=== PATIENT | female | born 1995 | race Caucasian/White ===

== ENCOUNTER 2018-05-08 13:36 | Emergency (ER) | payer OTHER ==
[2018-05-08 13:46] VITALS: BP 124/87
--- NOTE | 2018-05-08 13:48 | UC ---
UC General HPI - HPI Summary HPI Summary: Is almost out of sertraline prescription, has seen [facility], but it takes a while to get in. Has an intake appointment in 8 days, will probably take 3 more weeks to see psychiatrist. Just graduated from , looking for a job. - History of Current Complaint Stated Complaint: REFILL RX Time Seen by Provider: 05/08/18 13:37 Hx Obtained From: Patient Onset/Duration: Other Timing: Constant Current Severity: None Associated Signs & Symptoms: Positive: Other - Symptom-free currently - Allergy/Home Medications Allergies/Adverse Reactions: Allergies Allergy/AdvReac Type Severity Reaction Status Date / Time mmr vaccine Allergy Unknown Uncoded 05/08/18 13:46 Reaction Details Home Medications: Home Medications cloNIDine TAB* [Catapres 0.1 MG TAB*] 1 tab PO BID PRN 05/08/18 [History Confirmed 05/08/18] PMH/Surg Hx/FS Hx/Imm Hx Previously Healthy: Yes Psychological History: Anxiety, Depression - Family History Known Family History: Positive: Diabetes - grandmother - Social History Occupation: Unemployed Lives: Alone Alcohol Use: None Substance Use Type: None Smoking Status (MU): Never Smoked Tobacco Review of Systems Constitutional: Negative Skin: Negative Eyes: Negative ENT: Negative Respiratory: Negative Cardiovascular: Negative Gastrointestinal: Negative Genitourinary: Negative Motor: Negative Neurovascular: Negative Musculoskeletal: Negative Neurological: Negative Psychological: Negative Is Patient Immunocompromised?: No All Other Systems Reviewed And Are Negative: Yes Physical Exam Triage Information Reviewed: Yes Appearance: Well-Appearing, No Pain Distress, Obese Vital Signs Reviewed: Yes Eye Exam: Normal Eyes: Positive: Conjunctiva Clear ENT Exam: Normal ENT: Positive: Normal ENT inspection, Hearing grossly normal, Pharynx normal, TMs normal Dental Exam: Normal Neck exam: Normal Neck: Positive: Supple, Nontender, No Lymphadenopathy Respiratory Exam: Normal Respiratory: Positive: Chest non-tender, Lungs clear, Normal breath sounds, No respiratory distress, No accessory muscle use Cardiovascular Exam: Normal Cardiovascular: Positive: RRR, No Murmur Musculoskeletal: Positive: Strength Intact, ROM Intact Neurological Exam: Normal Neurological: Positive: Alert Psychological Exam: Normal Skin Exam: Normal Course/Dx - Differential Dx - Multi-Symptom Provider Diagnoses: Medication refill. mild depression. elevated blood pressure due to discomfort Discharge - Sign-Out/Discharge Documenting (check all that apply): Discharge/Admit/Transfer - Discharge Plan Condition: Stable Disposition: HOME Prescriptions: Sertraline* [Zoloft*] 1 tab PO DAILY #30 tab Patient Education Materials: Medicine Refill (ED) Referrals: [facility] [Outside] Additional Instructions: Please follow up with [facility] as well as a primary care provider. Call or come back at any time if need be. - Billing Disposition and Condition Condition: STABLE Disposition: Home
== END 2018-05-08 13:53 | disposition home or self-care (01) ==
LOC: UCEAST 13:36
DX: F41.8 Other specified anxiety disorders (principal)
CPT/HCPCS: 99212; G0463

== ENCOUNTER 2018-05-14 13:23 | Emergency (ER) | payer OTHER ==
--- NOTE | 2018-05-14 13:33 | UC ---
Lower Extremity/Ankle HPI - HPI Summary HPI Summary: 23 yo female presents with left ankle pain since 05/11. She tells me that on that date she tried to jump onto a boat - inverted her left ankle and landed on it. Had immediate pain, but was still able to ambulate. Since that time has had swelling and pain with weight bearing. Has been CEDRIC wrapped and using crutches. Denies numbness or tingling. - History of Current Complaint Stated Complaint: ANKLE INJURY Time Seen by Provider: 05/14/18 13:32 Hx Obtained From: Patient, Family/Vice [employer] Hx Last Menstrual Period: 3 wks ago Onset/Duration: Sudden Onset Severity Initially: Moderate Severity Currently: Moderate Pain Intensity: 6 Pain Scale Used: 0-10 Numeric Aggravating Factor(s): Standing, Ambulation Able to Bear Weight: Yes - Allergies/Home Medications Allergies/Adverse Reactions: Allergies Allergy/AdvReac Type Severity Reaction Status Date / Time mmr vaccine Allergy Unknown Uncoded 05/14/18 13:37 Reaction Details Home Medications: Home Medications Cetirizine* [ZyrTEC 10 MG TAB*] 10 mg PO DAILY PRN 05/14/18 [History Confirmed 05/14/18] Ibuprofen TAB* [Advil TAB*] 400 mg PO Q6H PRN 05/14/18 [History Confirmed ] PMH/Surg Hx/FS Hx/Imm Hx Previously Healthy: Yes Psychological History: Anxiety, Depression - Surgical History Surgical History: Yes Surgery Procedure, Year, and Place: Hernia - Family History Known Family History: Positive: Diabetes - grandmother - Social History Occupation: Student Lives: With Family Alcohol Use: None Substance Use Type: None Smoking Status (MU): Never Smoked Tobacco Review of Systems Constitutional: Negative Skin: Negative Respiratory: Negative Cardiovascular: Negative Musculoskeletal: Other: - Left ankle pain Neurological: Negative Psychological: Negative All Other Systems Reviewed And Are Negative: Yes Physical Exam - Summary Physical Exam Summary: GENERAL: NAD. WDWN. No pain distress. SKIN: No rashes, sores, lesions, or open wounds. NECK: Supple. Nontender. No lymphadenopathy. CHEST: No accessory muscle use. Breathing comfortably and in no distress. CV: Pulses intact PT and DP. Brisk cap refill. MSK: LEFT ANKLE: Moderate edema about left ankle lateral>medial. TTP about left ankle. FROM, but pain during inversion. Strength 5/5. No increased laxity. NEURO: Alert. Sensations intact and symmetric B/L LEs PSYCH: Age appropriate behavior. Triage Information Reviewed: Yes Vital Signs: Vital Signs: Temp Pulse Resp BP Pulse Ox 97.5 F 74 16 142/100 97 05/14/18 13:32 05/14/18 13:32 05/14/18 13:32 05/14/18 13:32 05/14/18 13:32 Lower Extremity Course/Dx - Course Course Of Treatment: XR: IMPRESSION: SOFT TISSUE INJURY, NO FRACTURE IS SEEN. Suspect left ankle sprain. RICE. Crutches. Gel splint. Ibuprofen prn. F/u with sports med if no improvement. - Differential Dx/Diagnosis Provider Diagnoses: Left ankle sprain Discharge - Sign-Out/Discharge Documenting (check all that apply): Discharge/Admit/Transfer - Discharge Plan Condition: Stable Disposition: HOME Patient Education Materials: Ankle Sprain (ED) Referrals: No Primary Care Phys,NOPCP [Primary Care Provider] - Sports Medicine [facility] [Provider Group] - If Needed Additional Instructions: If you develop a fever, shortness of breath, chest pain, new or worsening symptoms - please call your PCP or go to the ED. Your blood pressure was high at todays visit. Please see your primary provider within 4 weeks for recheck and re-evaluation. 1) Rest, Ice, and elevate your ankle as much as possible over the next few days 2) Use the gel ankle splint and crutches as needed for support and comfort 3) If your symptoms worsen or persist, please call Sports Medicine at the number below to schedule a follow up appointment - Billing Disposition and Condition Condition: STABLE Disposition: Home
[2018-05-14 13:37] VITALS: BP 142/100
--- NOTE | 2018-05-14 14:02 | RAD ---
INDICATION: Left ankle injury. TECHNIQUE: 3 views of the left ankle were obtained. FINDINGS: There is diffuse soft tissue swelling. The bones are in normal alignment. No fracture is seen. Joint spaces appear maintained. IMPRESSION: SOFT TISSUE INJURY, NO FRACTURE IS SEEN.
== END 2018-05-14 14:15 | disposition home or self-care (01) ==
LOC: UCEAST 13:23
DX: S93.402A Sprain of unspecified ligament of left ankle, initial encounter (principal); X50.0XXA Overexertion from strenuous movement or load, initial encounter; Y93.39 Activity, other involving climbing, rappelling and jumping off; Y92.814 Boat as the place of occurrence of the external cause; F41.8 Other specified anxiety disorders
CPT/HCPCS: 99213; G0463

== ENCOUNTER 2019-01-29 15:27 | Emergency (ER) | payer BC, OTHER ==
[2019-01-29] MEDS ORDERED: Methocarbamol TAB* 500 MG PO ONE (17:50)
[2019-01-29] MEDS ORDERED: Ketorolac INJ* 30 MG/ML 1 ML VIAL IM ONE (17:50)
--- NOTE | 2019-01-29 17:51 | ED ---
Back Pain - HPI Summary HPI Summary: 23-year-old female presents with back pain for the past day. She denies any injury. pain is on the right side of her lower back. pain goes down leg occasionally. States that it hurts when she ambulates. No weakness. No loss of bowel or bladder. No saddle anesthesia. No urinary symptoms. No fever. Denies any history of back pain. Has been using Aleve with minimal relief. no numbness or tingling. - History of Current Complaint Chief Complaint: EDBackInjuryPain Stated Complaint: "LOW BACK PAIN PER PT" Time Seen by Provider: 01/29/19 17:38 Hx Last Menstrual Period: 3 wks ago Pain Intensity: 5 - Allergies/Home Medications Allergies/Adverse Reactions: Allergies Allergy/AdvReac Type Severity Reaction Status Date / Time Egg Derived Allergy Rash And Verified 01/29/19 15:33 Itching mmr vaccine Allergy Unknown Uncoded 05/14/18 13:37 Reaction Details Home Medications: Home Medications Levonorgestrel (Iud) [Liletta IUD] 18.6 mcg IU DAILY 01/29/19 [History Confirmed 01/29/19] Naproxen Sodium [Aleve] 220 mg PO Q8H PRN 01/29/19 [History Confirmed 01/29/19] Sertraline* [Zoloft*] 50 mg PO DAILY 01/29/19 [History Confirmed 01/29/19] PMH/Surg Hx/FS Hx/Imm Hx Endocrine/Hematology History: Denies: Hx Anticoagulant Therapy Cardiovascular History: Denies: Hx Myocardial Infarction - Surgical History Surgery Procedure, Year, and Place: Hernia Infectious Disease History: No Infectious Disease History: Denies: Traveled Outside the [place] in Last 30 Days - Family History Known Family History: Positive: Diabetes - grandmother - Social History Alcohol Use: Occasionally Substance Use Type: Reports: Marijuana Substance Use Comment - Amount & Last Used: occasional Smoking Status (MU): Never Smoked Tobacco Review of Systems Negative: Fever Negative: Chest Pain Negative: Shortness Of Breath Positive: Myalgia - back pain All Other Systems Reviewed And Are Negative: Yes Physical Exam Triage Information Reviewed: Yes Vital Signs On Initial Exam: Initial Vitals Temp Pulse Resp BP Pulse Ox 97.2 F 77 16 119/80 99 01/29/19 15:29 01/29/19 15:29 01/29/19 15:29 01/29/19 15:29 01/29/19 15:29 Vital Signs Reviewed: Yes Appearance: Positive: Well-Appearing Skin: Positive: Warm, Dry Head/Face: Positive: Normal Head/Face Inspection Eyes: Positive: Normal, Conjunctiva Clear ENT: Positive: Pharynx normal Respiratory/Lung Sounds: Positive: Clear to Auscultation, Breath Sounds Present Cardiovascular: Positive: Normal, RRR Abdomen Description: Positive: Soft Bowel Sounds: Positive: Present Musculoskeletal: Positive: Limited @ - back, Other - tenderness right side of lower back, neg SLR, good pulses, sensation grossly intact Neurological: Positive: Normal, Reflexes Intact - patella, Babinski Bilateral - normal Psychiatric: Positive: Normal Diagnostics - Vital Signs Vital Signs Temp Pulse Resp BP Pulse Ox 01/29/19 15:29 97.2 F 77 16 119/80 99 - Laboratory Lab Statement: Any lab studies that have been ordered have been reviewed, and results considered in the medical decision making process. - Radiology back Radiology Interpretation Completed By: ED Physician Summary of Radiographic Findings: no fracture Re-Evaluation - Re-Evaluation First Eval Re-Evaluation Time: 19:11 Change: Improved Comment: feeling better Back Pain Course/Dx - Course Course Of Treatment: 23-year-old female presents with back pain for the past day. She denies any injury. pain is on the right side of her lower back. pain goes down leg occasionally. States that it hurts when she ambulates. No weakness. No loss of bowel or bladder. No saddle anesthesia. No urinary symptoms. No fever. Denies any history of back pain. Has been using Aleve with minimal relief. no numbness or tingling. On exam tenderness of the right side of lower back. Neurovascular intact. Was able to ambulate to bathroom without difficulty. X-rays normal. Gave Toradol and Robaxin feeling better. Will prescribe Flexeril and medrol. told follow up with primary. Patient understands agrees plan. - Diagnoses Differential Diagnosis/HQI/PQRI: Positive: Fracture, Herniated Disc, Strain Provider Diagnoses: Back pain Discharge - Sign-Out/Discharge Documenting (check all that apply): Patient Departure Patient Received Moderate/Deep Sedation with Procedure: No - Discharge Plan Condition: Good Disposition: HOME Prescriptions: Cyclobenzaprine TAB* [Flexeril 10 MG TAB*] 10 mg PO TID PRN #15 tab PRN Reason: Pain methylPREDNISolone [Medrol Dosepak 4 MG*] 4 mg PO .SEE LEWIS INSTRUCTION #1 packet Patient Education Materials: Back Pain (ED) Forms: *Work Release Referrals: Luda Delacruz MD [Primary Care Provider] - Additional Instructions: Follow directions on package for Medrol pack Take muscle relaxers three times a day Use ibuprofen or Tylenol for pain every 6 hours ice/heat area, move as much as possible Follow up with primary within 5 days Return to ED if develop any new or worsening symptoms - Billing Disposition and Condition Condition: GOOD Disposition: Home
[2019-01-29] MEDS ORDERED: Cyclobenzaprine TAB* 10 MG PO ONE (19:11)
[2019-01-29] MEDS ORDERED: Dexamethasone TAB* 4 MG PO ONE (19:32)
[2019-01-29 19:46] VITALS: BP 120/75
== END 2019-01-29 19:45 | disposition home or self-care (01) ==
LOC: ED 15:27
DX: M54.5 Low back pain (principal); Z88.7 Allergy status to serum and vaccine; Z91.012 Allergy to eggs
CPT/HCPCS: 72110; 96372; 99282; A9270-GY; J1885; J8540

== ENCOUNTER 2019-09-11 17:32 | Emergency (ER) | payer BC ==
[2019-09-11 18:01] VITALS: BP 114/75
[2019-09-11] MEDS ORDERED: Ketorolac *IM* INJ* 60 MG/2 ML VIAL IM ONE (19:04)
[2019-09-11] MEDS ORDERED: Cyclobenzaprine TAB* 10 MG PO ONE (19:04)
--- NOTE | 2019-09-11 19:04 | UC ---
Back Pain HPI - HPI Summary HPI Summary: has had one episode of back pain that is similar to this episode but worse-- pain radiates down both legs R>L. Did not seek follow up after last episode--- patient was doing house work today that was the provoking factor for the pain - History of Current Complaint Chief Complaint: UCBackPain Stated Complaint: LEG PAIN Time Seen by Provider: 09/11/19 18:58 Hx Obtained From: Patient Hx Last Menstrual Period: IUD in place ?: No Onset/Duration: Sudden Onset, Lasting Hours Timing: Constant Pain Intensity: 9 Pain Scale Used: 0-10 Numeric Back Pain: Is Discrete @ - low back radiating down both legs R>L Character: Aching, Throbbing, Stiffness Aggravating Factor(s): Movement, Lifting, Bending Alleviating Factor(s): Nothing - Allergies/Home Medications Allergies/Adverse Reactions: Allergies Allergy/AdvReac Type Severity Reaction Status Date / Time Egg Derived Allergy Rash And Verified 09/11/19 17:57 Itching Influenza Virus Vaccines Allergy Rash Verified 09/11/19 17:58 mmr vaccine Allergy Unknown Uncoded 09/11/19 17:57 Reaction Details PMH/Surg Hx/FS Hx/Imm Hx Previously Healthy: No Psychological History: Depression Other History Of: Negative For: Anticoagulant Therapy - Surgical History Surgical History: Yes Surgery Procedure, Year, and Place: Hernia. ear surgery - Family History Known Family History: Positive: Diabetes - grandmother - Social History Occupation: Employed Full-time Lives: With Family Alcohol Use: Occasionally Substance Use Type: Marijuana Substance Use Comment - Amount & Last Used: occasional Smoking Status (MU): Never Smoked Tobacco Review of Systems All Other Systems Reviewed And Are Negative: Yes Constitutional: Positive: Negative Skin: Positive: Negative Eyes: Positive: Negative ENT: Positive: Negative Respiratory: Positive: Negative Cardiovascular: Positive: Negative Gastrointestinal: Positive: Negative Genitourinary: Positive: Negative Motor: Positive: Decreased ROM - back Neurovascular: Positive: Negative Musculoskeletal: Positive: Arthralgia - low back, Myalgia - pain radiating down buttock Neurological: Positive: Negative Psychological: Positive: Negative Is Patient Immunocompromised?: No Physical Exam Triage Information Reviewed: Yes Appearance: Well-Appearing, Pain Distress - mild, Obese Vital Signs: Initial Vital Signs Temp 98 F 09/11/19 17:53 Pulse 93 09/11/19 17:53 Resp 18 09/11/19 17:53 BP 114/75 09/11/19 17:53 Pulse Ox 98 09/11/19 17:53 Vital Signs Reviewed: Yes Eye Exam: Normal Eyes: Positive: Conjunctiva Clear ENT Exam: Normal ENT: Positive: Normal ENT inspection, Hearing grossly normal. Negative: Trismus , Muffled voice, Hoarse voice Dental Exam: Normal Neck exam: Normal Neck: Positive: Supple, Nontender Respiratory Exam: Normal Respiratory: Positive: Chest non-tender, No respiratory distress, No accessory muscle use Cardiovascular Exam: Normal Cardiovascular: Positive: RRR, Pulses Normal, Brisk Capillary Refill Musculoskeletal: Positive: Strength Limited @ - n/m/c intact distally both legs equal Neurological Exam: Normal Neurological: Positive: Alert, Muscle Tone Normal Psychological Exam: Normal Skin Exam: Normal Back Pain Course/Dx - Course Course Of Treatment: medrol dose pack, flexeril, low back exercise follow with pcp this week - Differential Dx/Diagnosis Provider Diagnosis: Low back pain, Muscle spasm Discharge ED - Sign-Out/Discharge Documenting (check all that apply): Patient Departure All imaging exams completed and their final reports reviewed: No Studies - Discharge Plan Condition: Stable Disposition: HOME Prescriptions: Cyclobenzaprine TAB* [Flexeril 10 MG TAB*] 10 mg PO TID PRN #15 tab PRN Reason: back pain muscle spasm methylPREDNISolone [Medrol] 4 mg PO .SEE LEWIS INSTRUCTION #1 tab.[id number] Patient Education Materials: Low Back Strain (ED), Lower Back Exercises (ED) Forms: *Work Release Referrals: Luda Delacruz MD [Primary Care Provider] - 1 Week - Billing Disposition and Condition Condition: STABLE Disposition: Home - Attestation Statements Provider Attestation: Per institutional requirements, I have reviewed the chart, however, I was not consulted specifically or made aware of this patient by the midlevel provider. I did not personally evaluate, interact with , or disposition this patient.
== END 2019-09-11 19:34 | disposition home or self-care (01) ==
LOC: UCEAST 17:32
DX: M54.5 Low back pain (principal); M62.830 Muscle spasm of back; Z91.012 Allergy to eggs; Z88.7 Allergy status to serum and vaccine
CPT/HCPCS: 96372; 99212; A9270-GY; G0463; J1885